=== PATIENT | female | born 1960 | race Caucasian/White ===

== ENCOUNTER 2020-05-27 16:05 | Emergency (ER) | payer OTHER ==
[~2020-05-27] VITALS: Ht 172.7 cm; Wt 9713.2 kg
[2020-05-27] MEDS ORDERED: TEGRETOL200 MG (16:15)
[2020-05-27] MEDS ORDERED: KEPPRA500 MG (16:15)
[2020-05-27] MEDS ORDERED: LEVOTHYROXINE25 MCG (16:16)
[2020-05-27] MEDS ORDERED: KEPPRA1000 MG (16:18)
[2020-05-27] MEDS ORDERED: CRESTOR40 MG (16:19)
[2020-05-27] MEDS ORDERED: ZYPREXA5 MG (16:21)
== END 2020-05-27 20:10 | disposition home or self-care (01) ==
LOC: ER 16:05
DX: S00.83XA Contusion of other part of head, initial encounter (principal); S60.221A Contusion of right hand, initial encounter; M12.541 Traumatic arthropathy, right hand; W18.09XA Striking against other object with subsequent fall, initial encounter; Y93.89 Activity, other specified; Y92.098 Other place in other non-institutional residence as the place of occurrence of the external cause; Y99.8 Other external cause status

== ENCOUNTER 2025-04-09 12:26 | Outpatient (CLI) | payer OTHER ==
[~2025-04-09 12:26] MED LIST: CRESTOR40 MG; KEPPRA1000 MG; KEPPRA500 MG; LEVOTHYROXINE25 MCG; TEGRETOL200 MG; ZYPREXA5 MG
== END 2025-04-09 12:32 | disposition home or self-care (01) ==
LOC: MAMO-SONO 12:26
PROVIDERS: ATTEND Obstetrics & Gynecology Obstetrics
DX: Z12.31 Encounter for screening mammogram for malignant neoplasm of breast (principal); R10.2 Pelvic and perineal pain